=== PATIENT | female | born 1955 | race Caucasian/White ===

== ENCOUNTER 2023-07-18 15:58 | Outpatient (RCR) | payer OTHER, SELFPAY | END 2023-07-18 23:59 | disposition home or self-care (01) | LOC: RPT 15:58 | PROVIDERS: ATTENDING PHYSICIAN Physician Assistant Medical; FAMILY PHYSICIAN Student in an Organized Health Care Education/Training Program | DX: M76.891 Other specified enthesopathies of right lower limb, excluding foot (principal); M76.892 Other specified enthesopathies of left lower limb, excluding foot; Z73.6 Limitation of activities due to disability | CPT/HCPCS: 97010; 97110; 97162 ==

== ENCOUNTER → 2023-08-26 07:36 | Outpatient (REF) | payer OTHER, SELFPAY ==
[2023-08-26 08:30] LABS: % Basophils 0.7 % (0-2); % Eosinophils 1.7 % (0-6); % Immature Granulocytes 0.2 % (0-0.5); % Lymphocytes 38.6 % (20.5-51.1); % Monocytes 8.9 % (1.7-9.3); % Neutrophils 49.9 % (42.2-75.2); Absolute Eosinophils 0.1 10^3/uL (0-0.7); Absolute Lymphocytes 2.1 10^3/uL (1.2-3.4); Absolute Monocytes 0.5 10^3/uL (0.1-0.6); Absolute Neutrophils 2.7 10^3/uL (1.4-6.5); Hematocrit 41.1 % (37.0-47.0); Hemoglobin 13.6 g/dL (12.0-16.0); Mean Corp Hgb Conc. 33.1 g/dL (33.0-37.0); Mean Corpuscular Hgb 29.3 pg (27.0-31.0); Mean Corpuscular Volume 88.6 fL (81.0-99.0); Mean Platelet Volume 10.7 fL (7.4-10.4); Nucleated Red Blood Cells % 0 %; Platelet Count 203 10^3/uL (130-400); Red Blood Cell Count 4.64 10^6/uL (4.20-5.40); Red Cell Dist. Width 14.2 % (11.5-14.5); White Blood Cell Count 5.4 10^3/uL (4.8-10.8)
[2023-08-26 09:10] LABS: ALT (SGPT) 23 U/L (0-35); AST (SGOT) 31 U/L (14-36); Albumin 4.1 g/dl (3.5-5.0); Alkaline Phosphatase 66 U/L (38-126); Blood Urea Nitrogen 21 mg/dl (7-17); Calcium 9.5 mg/dl (8.4-10.2); Carbon Dioxide 29 mmol/L (22-30); Chloride 109 mmol/L (98-107); Glucose 87 mg/dl (70-99); Potassium 4.6 mmol/L (3.5-5.1); Sodium 139 mmol/L (135-145); Total Bilirubin 0.5 mg/dl (0.2-1.3); Total Protein 6.5 g/dl (6.3-8.2); eGFR > 60.00
[2023-08-26 09:51] LABS: TSH Reflex To Free T4 2.01 uIU/ml (0.47-4.68)
== END ==
LOC: REG 07:36
PROVIDERS: ATTENDING PHYSICIAN Student in an Organized Health Care Education/Training Program
DX: R53.83 Other fatigue (principal)
CPT/HCPCS: 36415; 80053; 84443; 85025

== ENCOUNTER → 2023-09-14 14:14 | Outpatient (REF) | payer OTHER, SELFPAY | LOC: WDC 14:14 | PROVIDERS: ATTENDING PHYSICIAN Student in an Organized Health Care Education/Training Program | DX: N64.4 Mastodynia (principal) | CPT/HCPCS: 76642; 77062; 77066 ==

== ENCOUNTER → 2023-09-28 08:40 | Outpatient (REF) | payer OTHER, SELFPAY | LOC: PAVMRI 08:40 | PROVIDERS: ATTENDING PHYSICIAN Orthopaedic Surgery; FAMILY PHYSICIAN Student in an Organized Health Care Education/Training Program | DX: M25.561 Pain in right knee (principal) | CPT/HCPCS: 73721 ==

== ENCOUNTER → 2024-01-22 14:16 | Outpatient (REF) | payer OTHER, SELFPAY | LOC: RAD 14:16 | PROVIDERS: ATTENDING PHYSICIAN Physician Assistant; FAMILY PHYSICIAN Student in an Organized Health Care Education/Training Program | DX: M79.671 Pain in right foot (principal) | CPT/HCPCS: 73630 ==

== ENCOUNTER → 2024-01-23 06:22 | Outpatient (REF) | payer OTHER, SELFPAY ==
[2024-01-23 07:22] LABS: % Basophils 0.7 % (0-2); % Eosinophils 1.5 % (0-6); % Immature Granulocytes 0.3 % (0-0.5); % Monocytes 7.9 % (1.7-9.3); % Neutrophils 61.6 % (42.2-75.2); Absolute Eosinophils 0.1 10^3/uL (0-0.7); Absolute Lymphocytes 1.6 10^3/uL (1.2-3.4); Absolute Monocytes 0.5 10^3/uL (0.1-0.6); Absolute Neutrophils 3.6 10^3/uL (1.4-6.5); Hemoglobin 13.2 g/dL (12.0-16.0); Mean Corpuscular Hgb 29.5 pg (27.0-31.0); Mean Corpuscular Volume 89.3 fL (81.0-99.0); Mean Platelet Volume 11.1 fL (7.4-10.4); Nucleated Red Blood Cells % 0 %; Platelet Count 209 10^3/uL (130-400); Red Blood Cell Count 4.48 10^6/uL (4.20-5.40); Red Cell Dist. Width 13.5 % (11.5-14.5); White Blood Cell Count 5.8 10^3/uL (4.8-10.8)
[2024-01-23 08:27] LABS: ALT (SGPT) 21 U/L (0-35); AST (SGOT) 32 U/L (14-36); Albumin 4.3 g/dl (3.5-5.0); Alkaline Phosphatase 64 U/L (38-126); Blood Urea Nitrogen 24 mg/dl (7-17); Calcium 9.4 mg/dl (8.4-10.2); Chloride 108 mmol/L (98-107); Glucose 91 mg/dl (70-99); HDL Cholesterol 61 mg/dl; LDL Cholesterol, Calculated 134 mg/dl; Potassium 4.7 mmol/L (3.5-5.1); Sodium 140 mmol/L (135-145); Total Bilirubin 0.2 mg/dl (0.2-1.3); Total Cholesterol 211 mg/dl (50-199); Total Protein 6.5 g/dl (6.3-8.2); Triglyceride 82 mg/dl (10-149); Very Low Density Lipoprotein 16 mg/dl (0-30); eGFR > 60.00
[2024-01-23 08:36] LABS: Carbon Dioxide 23 mmol/L (22-30)
[2024-01-23 08:45] LABS: TSH Reflex To Free T4 2.36 uIU/ml (0.47-4.68)
== END ==
LOC: REG 06:22
PROVIDERS: ATTENDING PHYSICIAN Physician Assistant
DX: R06.02 Shortness of breath (principal); R47.89 Other speech disturbances; N39.41 Urge incontinence; R15.9 Full incontinence of feces; Z13.220 Encounter for screening for lipoid disorders; Z13.0 Encounter for screening for diseases of the blood and blood-forming organs and certain disorders involving the immune mechanism; Z13.1 Encounter for screening for diabetes mellitus
CPT/HCPCS: 36415; 80053; 80061; 84443; 85025

== ENCOUNTER → 2025-04-04 06:43 | Outpatient (REF) | payer OTHER, SELFPAY ==
[2025-04-04 07:35] LABS: Hematocrit 43.6 % (37.0-47.0); Hemoglobin 14.6 g/dL (12.0-16.0); Mean Corp Hgb Conc. 33.5 g/dL (33.0-37.0); Mean Corpuscular Volume 86.9 fL (81.0-99.0); Nucleated Red Blood Cells % 0 %; Platelet Count 210 10^3/uL (130-400); Red Cell Dist. Width 14.2 % (11.5-14.5)
[2025-04-04 08:02] LABS: ALT (SGPT) 29 U/L (0-35); AST (SGOT) 31 U/L (14-36); Albumin 4.5 g/dl (3.5-5.0); Alkaline Phosphatase 67 U/L (38-126); Blood Urea Nitrogen 19 mg/dl (7-17); Calcium 9.8 mg/dl (8.4-10.2); Carbon Dioxide 29 mmol/L (22-30); Chloride 105 mmol/L (98-107); Glucose 92 mg/dl (70-99); HDL Cholesterol 55 mg/dl; LDL Cholesterol, Calculated 181 mg/dl; Potassium 5.1 mmol/L (3.5-5.1); Sodium 141 mmol/L (135-145); Total Protein 7.4 g/dl (6.3-8.2); Very Low Density Lipoprotein 24 mg/dl (0-30); eGFR > 60.00
== END ==
LOC: REG 06:43
PROVIDERS: ATTENDING PHYSICIAN Student in an Organized Health Care Education/Training Program
DX: F32.1 Major depressive disorder, single episode, moderate (principal); Z00.00 Encounter for general adult medical examination without abnormal findings; E78.00 Pure hypercholesterolemia, unspecified
CPT/HCPCS: 36415; 80053; 80061; 84443; 85025

== ENCOUNTER → 2025-05-26 16:41 | Outpatient (REF) | payer SELFPAY | LOC: RAD 16:41 | PROVIDERS: ATTENDING PHYSICIAN Student in an Organized Health Care Education/Training Program | DX: E78.00 Pure hypercholesterolemia, unspecified (principal) | CPT/HCPCS: 75571 ==